=== PATIENT | female | born 1980 | race Caucasian/White ===

== ENCOUNTER 2017-01-13 21:55 | Emergency (ER) | payer OTHER ==
[~2017-01-13 21:55] MED LIST: ATIVAN1 M2 PO; CLARITIN10 M2 PO; CLINDAMYCIN HC300 M2 PO; CYCLOBENZAPRINE10 M1 PO; FLONASE ALLERG9.9 ML; KEFLEX500 M4 PO; MOTRIN600 MG PO; PAROXETINE HCL PO; PERCOCET 5-3251 EACH PO; PREDNISONE10 M1 PO; PROVENTIL HFA6.7 G1 PO; TYLENOL WITH C1 EACH PO; ZITHROMAX250 M1 PO; ZITHROMAX250MG Z-PAK PO; ZYRTEC10 M7 PO
[2017-01-13] MEDS ORDERED: CLARITIN10 M6 PO (23:44)
[2017-01-13] MEDS ORDERED: PROZAC20 M3 PO (23:44)
[2017-01-14 00:15] LABS: BASO % 0.1 % (0-2); EOS % 2.1 % (0-7); EOSINOPHIL ABSOLUTE COUNT 0.2 tho/cmm (0.0-0.7); HGB-HEMOGLOBIN 12.8 gm/dl (12.0-15.5); IMMATURE GRANULOCYTES ABSOLUTE 0.02 tho/cmm (0-0.03); IMMATURE GRANULOCYTES PERCENT 0.2 % (0-0.3); LYMPH % 23.8 % (20-45); LYMPH ABSOLUTE COUNT 2.2 tho/cmm (0.8-4.5); MCH (MEAN CORPUSCULAR HGB) 30.9 pg (28.0-32.0); MCHC MEAN CORPUSCULAR HGB CONC 34.6 % (32.0-36.0); MCV (MEAN CELL VOLUME) 89.4 fl (82.0-96.0); MEAN PLATELET VOLUME 10.3 cmc (9.4-12.4); MONO % 6.9 % (0-12); MONOCYTE ABSOLUTE COUNT 0.6 tho/cmm (0.0-1.2); NEUTROPHIL ABSOLUTE COUNT 6.1 tho/cmm (1.6-8.0); NEUTROPHIL-AUTOMATED 6.1 tho/cmm (1.6-8.0); NEUTROPHILS % 66.9 % (40-80); PLATELET COUNT 210 tho/cmm (150-450); RED BLOOD COUNT 4.14 mil/cmm (4.00-5.20); RED CELL DISTRIBUTION WIDTH 13.4 % (12.4-16.4); WHITE BLOOD COUNT 9.1 tho/cmm (4.0-10.0)
[2017-01-14 00:32] LABS: ALB/GLOB RATIO 0.8 (0.8-2.0); ALBUMIN 3.1 g/dl (3.5-5.0); ALKALINE PHOSPHATASE 131 U/L (33-138); ALT/SGPT 16 U/L (12-78); ANION GAP 13 mmol/L (0-20); AST/SGOT 11 U/L (10-40); BILIRUBIN,TOTAL 0.1 mg/dl (0-1.5); BLOOD UREA NITROGEN 14 mg/dl (6-24); CALCIUM 8.8 mg/dl (8.5-10.5); CARBON DIOXIDE-VENOUS 24 mmol/L (22-32); CHLORIDE 105 mmol/l (96-110); CREATININE 0.66 mg/dl (0.50-1.10); GLUCOSE 91 mg/dL (70-110); POTASSIUM 4.1 mmol/L (3.7-5.1); SODIUM 138 mmol/L (135-145); eGFR VALUE FOR BLACK >90 mL/Min
[2017-01-14] MEDS ORDERED: KEFLEX500 M4 PO (01:41)
== END 2017-01-14 03:06 ==
LOC: EDMED 21:55
PROVIDERS: Emergency Medicine Emergency Medical Services
DX: L03.116 Cellulitis of left lower limb (principal); F41.9 Anxiety disorder, unspecified; F32.9 Major depressive disorder, single episode, unspecified; Z90.49 Acquired absence of other specified parts of digestive tract; Z98.890 Other specified postprocedural states; Z79.899 Other long term (current) drug therapy; F17.200 Nicotine dependence, unspecified, uncomplicated
CPT/HCPCS: J0690